=== PATIENT | female | born 1965 | race Caucasian/White ===

== ENCOUNTER → 2018-10-28 | Day surgery (SDC) | payer BC ==
[~2018-10-28] MED LIST: BUPROPION HCL75 MG PO; FENTANYL CITRATE/PF 100MCG/2 ML INJ ONE; HYOSCYAMINE 0.125 MG TAB ONE; MIDAZOLAM HCL 2 MG/2 ML VIAL ONE; PROPOFOL IV EMULSION 10 MG/ML 50 ML VIAL ONE
--- OUTSIDE RECORDS SUMMARY | 2018-10-28 05:59 | XMS REPORT | Clinical Summary ---
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 Max Daily Amount: 4 tablets 01/25/2018 promethazine (PHENERGAN) Take 1 tablet 20 tablet 0 25 MG tablet (25 mg total) 8 by mouth every 6 (six) hours as needed for nausea or vomiting for up to 7 days. Active Problems Problem Noted Date Mechanical complication of internal fixation device such as nail, plate or 01/04/2018 angella Overview: Added automatically from request for surgery [id number] Acute vaginitis 09/01/2017 Closed -punch intra-articular fracture of distal end of radius with 06/11/2017 routine healing Closed fracture of right distal radius 06/03/2017 Overview: Added automatically from request for surgery [id number] DVT (deep venous thrombosis) Smoker Encounters Care Team Description Date Type Specialty Cassidy Hughes MD Mechanical complication of internal fixation device such as nail, plate or angella, subsequent encounter (Primary Dx) 03/01/2018 Office Visit Orthopedic Surgery Cassidy Hughes MD Mechanical complication of internal fixation device such as nail, plate or angella, subsequent encounter (Primary Dx) 01/25/2018 Office Visit Orthopedic Surgery Cassidy Hughes MD 01/20/2018 Telephone Orthopedic Surgery Endy Dorantes Mechanical complication of graft of cartilage, initial encounter (HCC) (Primary Dx) 01/20/2018 Refill Orthopedic Surgery Marcelina Matos 01/20/2018 Telephone Anesthesiology Cassidy Hughes MD DEEP HARDWARE REMOVAL RIGHT DISTAL [facility] 01/19/2018 Surgery General Surgery Alia Zayas NP 01/19/2018 Anesthesia General Surgery Event Cassidy Hughes MD Mechanical complication of internal fixation device such as nail, plate or angella, initial encounter (HCC) 01/19/2018 Hospital General Surgery Encounter Endy Dorantes 01/18/2018 Refill Orthopedic Surgery Reese Arceo MD Painful respiration 12/27/2017 Hospital Radiology Encounter Reese Arceo MD Painful respiration (Primary Dx) 12/27/2017 Transcribe Access Orders Cassidy Hughes MD Mechanical complication of internal fixation device such as nail, plate or angella, initial encounter (Primary Dx); Closed intra-articular -punch fracture of right radius with routine healing, subsequent encounter 12/14/2017 Office Visit Orthopedic Surgery Reese Arceo MD Cough (Primary Dx); Chest pain on breathing 12/10/2017 Transcribe Access Orders after 10/27/2017 Family History Medical History Relation Name Comments Cirrhosis Father Diabetes Mother Hypertension Mother Relation Name Status Comments Father Mother Social History Date Tobacco Use Types Packs/Day Years Used Current Every Day Smoker Cigarettes 1 25 Smokeless Tobacco: Never Used Tobacco Cessation: Ready to Quit: Yes Alcohol Use Drinks/Week oz/Week Comments Yes 2 Cans of 1.2 beer Sex Assigned at Date Recorded Not on file Industry Job Start Date Occupation Not on file Not on file Not on file Travel End Travel History Travel Start No recent travel history available. Last Filed Vital Signs Time Taken Vital Sign Reading 01/25/2018 9:02 AM CDT Blood Pressure 131/76 01/25/2018 9:02 AM CDT Pulse 78 01/19/2018 12:00 PM CDT Temperature 36.2 C (97.1 F) 01/19/2018 12:00 PM CDT Respiratory Rate 20 01/19/2018 12:00 PM CDT Oxygen Saturation 93% - Inhaled Oxygen - Concentration 03/01/2018 8:41 AM [employer]OMER SERV[employer]ITY OFFICER Weight 61.2 kg (135 lb) 03/01/2018 8:41 AM CUSTOMER SERVICE SECURITY OFFICER Height 177.8 cm (5' 10") 03/01/2018 8:41 AM CUSTOMER SERVICE SECURITY OFFICER Body Mass Index 19.37 Plan of Treatment Health Maintenance Due Date Last Done Comments COLONOSCOPY SCREENING 2014 SHINGLES VACCINES (#1) 2014 INFLUENZA VACCINE 11/17/2018 BREAST CANCER SCREENING 10/01/2019 09/30/2017, 09/27/2017, 09/27/2017, Additional history exists Implants Device Identifier Shelf Expiration Date Model / Serial / Lot Implanted Type Area Manufactur er 02 111 630 / / VENDOR LOT NA Plate Vdr Rt Va-Lcp 2col 6x3h Ss Orthopedic Right: Wrist SYNTHES 2.4x54mm - [id number] Trauma TRAUMA AND Implanted: 06/07/2017 (Quantity not Implants RECON on file) 02 210 122 / / VENDOR LOT NA Screw Bone Lkng V-Ang W/ T8 Strdrv Orthopedic Right: Wrist SYNTHES Recs Ss 2.4x22mm - [id number] Trauma TRAUMA AND Implanted: 06/07/2017 (Quantity not Implants RECON on file) 02 210 120 / / VENDOR LOT NA Screw Bone Lkng V-Ang W/ T8 Strdrv Orthopedic Right: Wrist SYNTHES Recs Ss 2.4x20mm - [id number] Trauma TRAUMA AND Implanted: 06/07/2017 (Quantity not Implants RECON on file) 02 210 114 / / VENDOR LOT NA Screw Bone Lkng V-Ang W/ T8 Strdrv Orthopedic Right: Wrist SYNTHES Recs Ss 2.4x14mm - [id number] Trauma TRAUMA AND Implanted: 06/07/2017 (Quantity not Implants RECON on file) 02 210 112 / / VENDOR LOT NA Screw Bone Lkng V-Ang W/ T8 Strdrv Orthopedic Right: Wrist SYNTHES Recs Ss 2.4x12mm - [id number] Trauma TRAUMA AND Implanted: 06/07/2017 (Quantity not Implants RECON on file) 202 874 / / Screw Bone Raimundo Slf-Tap W/ T8 Orthopedic N/A: N/A SYNTHES Strdrv Recs Ss 2.7x14mm - Trauma TRAUMA AND [id number] Implants RECON Implanted: 06/07/2017 (Quantity not on file) Procedures Comments Procedure Name Priority Date/Time Associated Diagnosis T3 Routine 06/13/2018 Thyroid function test 10:56 AM CUSTOMER SERVICE SECURITY OFFICER abnormal T4, FREE Routine 06/13/2018 Thyroid function test 10:56 AM CUSTOMER SERVICE SECURITY OFFICER abnormal THYROID STIMULATING Routine 06/13/2018 Thyroid function test HORMONE 10:56 AM CUSTOMER SERVICE SECURITY OFFICER abnormal XR WRIST 3+ VW RIGHT Routine 03/01/2018 Mechanical complication 9:00 AM CUSTOMER SERVICE SECURITY OFFICER of internal fixation device such as nail, plate or angella, subsequent encounter XR WRIST 3+ VW RIGHT Routine 01/25/2018 Right wrist pain 9:54 AM CDT REMOVAL, HARDWARE, 01/19/2018 Mechanical complication RADIUS, HEAD 11:00 AM CDT of internal fixation device such as nail, plate or angella, initial encounter (HCC) Special Needs OP, SUPINE, AXILLARY, SYNTHES SCREWDRIVE R [place] AN PERIPHERAL BLOCK Routine 01/19/2018 PROCEDURE FOR PAIN 9:53 AM CDT Procedure Note - Maura Orta - 01/19/2018 9:53 AM CDT Peripheral Block Performed by: BERTHA MARTINEZ Authorized by: CASSIDY HUGHES Patient Location: PACU Start Time: 01/19/2018 9:53 AM End Time: 01/19/2018 10:02 AM Reason for Block: at surgeon's request, post-op pain management , procedure for pain Staff: Anesthesio logist: BERTHA MARTINEZ Performed by: Anesthesio logisedmund Preprocedu re: patient identified , IV checked, site and side verified, risks and benefits discussed, procedure verified, surgical consent complete, patient position confirmed, monitors and equipment checked, pre-op evaluation complete and site marked Time Out Performed: 01/19/2018 9:50 AM Peripheral Nerve Block: Patient Position: Supine Prep: ChloraPrep Monitoring : Blood pressure monitoring , continuous pulse oximetry, CO2 and heart rate Block Type: Supraclavi cular Laterality : Right Injection Technique: Single injection Procedures : ultrasound guided and nerve stimulator Ultrasound documentat ion: Printed/pl aced in chart and still images obtained Local Infiltrati on (See MAR for details): Lidocaine Loss of Twitch: 0.4 mA Needle: Needle type: [employer]. Needle Gauge: 21 G Needle length: 90mm. Assessment : Injection Assessment : Visualized needle/loc al anesthetic surroundin g nerve, visualized pertinent vascular structures and nerves, needle tip visualized at all times during injection of medication , intermitte nt aspiration during local anesthetic administra tion and no symptoms of intraneura l/intraven ous injection Paresthesi a Pain: Immediatel y resolved Heart Rate Change: No Slow Fractionat ed Injection: Yes Block outcome: No apparent complicati ons, patient comfortabl e and patient tolerated procedure well Notes: Note transcribe d for Dr. Gloria Martinez. [place] AN PERIPHERAL BLOCK Routine 01/19/2018 POST-OP PAIN 9:53 AM CDT Procedure Note - Maura Orta - 01/19/2018 9:53 AM CDT Peripheral Block Performed by: BERTHA MARTINEZ Authorized by: CASSIDY HUGHES Patient Location: PACU Start Time: 01/19/2018 9:53 AM End Time: 01/19/2018 10:02 AM Reason for Block: at surgeon's request, post-op pain management , procedure for pain Staff: Anesthesio logist: BERTHA MARTINEZ Performed by: Anesthesio logist Preprocedu re: patient identified , IV checked, site and side verified, risks and benefits discussed, procedure verified, surgical consent complete, patient position confirmed, monitors and equipment checked, pre-op evaluation complete and site marked Time Out Performed: 01/19/2018 9:50 AM Peripheral Nerve Block: Patient Position: Supine Prep: ChloraPrep Monitoring : Blood pressure monitoring , continuous pulse oximetry, CO2 and heart rate Block Type: Supraclavi cular Laterality : Right Injection Technique: Single injection Procedures : ultrasound guided and nerve stimulator Ultrasound documentat ion: Printed/pl aced in chart and still images obtained Local Infiltrati on (See MAR for details): Lidocaine Loss of Twitch: 0.4 mA Needle: Needle type: Stimuquik. Needle Gauge: 21 G Needle length: 90mm. Assessment : Injection Assessment : Visualized needle/loc al anesthetic surroundin g nerve, visualized pertinent vascular structures and nerves, needle tip visualized at all times during injection of medication , intermitte nt aspiration during local anesthetic administra tion and no symptoms of intraneura l/intraven ous injection Paresthesi a Pain: Immediatel y resolved Heart Rate Change: No Slow Fractionat ed Injection: Yes Block outcome: No apparent complicati ons, patient comfortabl e and patient tolerated procedure well Notes: Note transcribe d for Dr. K. Shailesh. XR CHEST 2 VW Routine 12/27/2017 Painful respiration 9:50 AM CDT ZZESTIMATED GFR Routine 12/27/2017 9:30 AM CDT LIPID PANEL Routine 12/27/2017 Fatigue, unspecified type 9:30 AM CDT Cough Chest pain on breathing Screening for hyperlipidemia T4, FREE Routine 12/27/2017 Fatigue, unspecified type 9:30 AM CDT Cough Chest pain on breathing Screening for hyperlipidemia THYROID STIMULATING Routine 12/27/2017 Fatigue, unspecified type HORMONE 9:30 AM CDT Cough Chest pain on breathing Screening for hyperlipidemia SEDIMENTATION RATE Routine 12/27/2017 Fatigue, unspecified type 9:30 AM CDT Cough Chest pain on breathing Screening for hyperlipidemia HC COMPLETE BLD COUNT Routine 12/27/2017 Fatigue, unspecified type W/AUTO DIFF 9:30 AM CDT Cough Chest pain on breathing Screening for hyperlipidemia COMPREHENSIVE METABOLIC Routine 12/27/2017 Fatigue, unspecified type PANEL 9:30 AM CDT Cough Chest pain on breathing Screening for hyperlipidemia XR WRIST 3+ VW RIGHT Routine 12/14/2017 Closed intra-articular 8:35 AM CDT -punch fracture of right radius with routine healing, subsequent encounter after 10/27/2017 Results * T3 (06/13/2018 10:56 AM CUSTOMER SERVICE SECURITY OFFICER) T3 60 (L) 80 - 200 ng/dL [facility] Specimen Serum Performing Organization Address City/State/Zipcode Phone Number [facility] DEPARTMENT OF [address] [place] [address] PATHOLOGY AND GENOMIC MEDICINE [address] * Thyroid stimulating hormone (06/13/2018 10:56 AM CUSTOMER SERVICE SECURITY OFFICER) Only the most recent of 2 results within the time period is included. TSH 0.59 0.55 - 4.78 uIU/mL [facility] Specimen Serum Performing Organization Address City/State/Zipcode Phone Number [facility] DEPARTMENT OF [address] [place] [address]. [address] [place] [address] PATHOLOGY AND GENOMIC MEDICINE [address] * T4, free (06/13/2018 10:56 AM CUSTOMER SERVICE SECURITY OFFICER) Only the most recent of 2 results within the time period is included. T4, free 1.0 0.8 - 1.8 ng/dL [facility] Specimen Serum Performing Organization Address City/[facility] Phone Number [facility] DEPARTMENT OF [address] [place] [address]. [address] [place] [address] PATHOLOGY AND GENOMIC MEDICINE [address] * XR Wrist 3+ Vw Right (03/01/2018 9:00 AM CUSTOMER SERVICE SECURITY OFFICER) Only the most recent of 3 results within the time period is included. Specimen Narrative Performed At [facility] X-rays ordered, performed and interpreted by me today reveal:Right wrist 3 views show no evidence of distal radius re-fracture. Screw holes still visible, increased callus. Performing Organization Address [facility] Phone Number [employer] [address] [place] [address] * XR Chest 2 Vw (12/27/2017 9:50 AM CDT) Specimen Narrative Performed At Examination:XR CHEST 2 VW [facility] Clinical History: R07.1 Chest pain on breathing, chest pain on breathing Comparison: None. Technique: Frontal and lateral views of the chest were obtained. Findings: Lungs and pleural surfaces are clear. Cardiomediastinal silhouette and pulmonary vascularity are within normal limits. Bones are intact. Impression: No active cardiopulmonary disease identified. [facility]-[id number] Procedure Note Interface, Radiology Results Incoming - 12/27/2017 9:55 AM CDT Examination: XR CHEST 2 VW Clinical History: R07.1 Chest pain on breathing, chest pain on breathing Comparison: None. Technique: Frontal and lateral views of the chest were obtained. Findings: Lungs and pleural surfaces are clear. Cardiomediastinal silhouette and pulmonary vascularity are within normal limits. Bones are intact. Impression: No active cardiopulmonary disease identified. [facility]-[id number] Performing Organization Address City/[facility] Phone Number [employer] [address] [place] [address] * Estimated GFR (12/27/2017 9:30 AM CDT) Pathologist [facility] GFR Non Af Amer 87 mL/min/1.73 m2 [facility] DEPARTMENT OF PATHOLOGY AND GENOMIC MEDICINE GFR Af Amer >90 mL/min/1.73 m2 [facility] DEPARTMENT Comment: OF PATHOLOGY Chronic kidney disease: <60 AND GENOMIC mL/min/1.73m2 MEDICINE Kidney failure: <15 mL/min/1.73m2 The estimated GFR is calculated from the IDMS-traceable Modification of Diet in Renal Disease Equation. The accuracy of the calculation is poor when the creatinine is normal. Calculated values >90 mL/min/1.73m2 are not reported. This equation has not been validated in children (<18 years), women, the elderly (>70 years), or ethnic groups other than Caucasians and Americans. Specimen Plasma specimen Performing Organization Address City/State/[place] [address] PATHOLOGY AND GENOMIC [facility] * Sedimentation rate (12/27/2017 9:30 AM CDT) [facility] Sedimentation 6 1 - 20 mm/hr [facility] DEPARTMENT rate OF PATHOLOGY AND [employer] MEDICINE Specimen Blood Performing Organization Address City/[facility]/[place] [address] PATHOLOGY AND [employer] [facility] * CBC with platelet and differential (12/27/2017 9:30 AM CDT) [facility] WBC 7.2 4.5 - 11.0 k/uL [facility] DEPARTMENT OF PATHOLOGY AND GENOMIC MEDICINE RBC 4.29 4.20 - 5.50 M/uL [facility] DEPARTMENT OF PATHOLOGY AND GENOMIC MEDICINE HGB 14.2 14.0 - 18.0 g/dL [facility] DEPARTMENT OF PATHOLOGY AND GENOMIC MEDICINE HCT 43.0 37.0 - 47.0 % [facility] DEPARTMENT OF PATHOLOGY AND GENOMIC MEDICINE MCV 100.2 (H) 82.0 - 100.0 fL [facility] DEPARTMENT OF PATHOLOGY AND GENOMIC MEDICINE MCH 33.1 27.0 - 34.0 pg [facility] DEPARTMENT OF PATHOLOGY AND GENOMIC MEDICINE MCHC 33.0 31.0 - 37.0 g/dL [facility] DEPARTMENT OF PATHOLOGY AND GENOMIC MEDICINE RDW - SD 45.6 37.0 - 55.0 fL [facility] DEPARTMENT OF PATHOLOGY AND GENOMIC MEDICINE MPV 10.0 8.8 - 13.2 fL [facility] DEPARTMENT OF PATHOLOGY AND GENOMIC MEDICINE Platelet count 188 150 - 400 K/uL [facility] DEPARTMENT OF PATHOLOGY AND GENOMIC MEDICINE Nucleated RBC 0.00 /100 WBC [facility] DEPARTMENT OF PATHOLOGY AND GENOMIC MEDICINE Neutrophils 68.6 39.0 - 69.0 % [facility] DEPARTMENT OF PATHOLOGY AND GENOMIC MEDICINE Lymphocytes 23.6 (L) 25.0 - 45.0 % [facility] DEPARTMENT OF PATHOLOGY AND GENOMIC MEDICINE Monocytes 6.2 0.0 - 10.0 % [facility] DEPARTMENT OF PATHOLOGY AND GENOMIC MEDICINE Eosinophils 0.6 0.0 - 5.0 % [facility] DEPARTMENT OF PATHOLOGY AND GENOMIC MEDICINE Basophils 0.6 0.0 - 1.0 % [facility] DEPARTMENT OF PATHOLOGY AND GENOMIC MEDICINE Immature 0.4Comment: "Immature 0.0 - 1.0 % [facility] DEPARTMENT granulocytes granulocytes" (promyelocytes, OF PATHOLOGY myelocytes, metamyelocytes) AND GENOMIC MEDICINE Specimen Blood Performing Organization Address City/State/Zipcode Phone Number [place] [phone] [facility] [address] [place] [address] PATHOLOGY AND GENOMIC MEDICINE * Lipid panel (12/27/2017 9:30 AM CDT) Cholesterol 200 (H) 0 - 199 mg/dL [facility] DEPARTMENT OF PATHOLOGY AND GENOMIC MEDICINE Triglycerides 103 0 - 149 mg/dL [facility] DEPARTMENT OF PATHOLOGY AND GENOMIC MEDICINE HDL cholesterol 74 50 - 9,999 mg/dL [facility] DEPARTMENT OF PATHOLOGY AND GENOMIC MEDICINE LDL cholesterol 125 (H) 0 - 99 mg/dL [facility] DEPARTMENT OF PATHOLOGY AND GENOMIC MEDICINE Lipid panel See below [facility] DEPARTMENT interpretation Comment: OF PATHOLOGY Total Cholesterol AND GENOMIC (mg/dL) MEDICINE <200 Desirable 200-239Borderline -high >=240High Triglycerides (mg/dL) <150 Normal 150-199Borderline -high 200-499High >=500Very high HDL Cholesterol (mg/dL) <40Low (male) <50Low (female) LDL Cholesterol (mg/dL) <100 Optimal 100-129Near or above optimal 130-159Borderline -high 160-189High >=190Very high Risk Catergories that modify LDL goals. Risk Catergories LDL goal (mg/dL) CHD and CHD risk equivalent<100 (10-year risk >20%) Multiple (2+) risk factors <130 (10-year risk=<20%) 0-1 risk factors <160 (<10-year risk) Defining levels of lipids in metabolic syndrome Triglycerides >=150 mg/dL HDL Cholesterol Men <40 mg/dL Women <50 mg/dL Non-HDL cholesterol is a second target for therapy in persons with high triglycerides (>=200 mg/dL) Specimen Plasma specimen Performing Organization Address City/State/Zipcode Phone Number [address] [place] [phone] PATHOLOGY AND GENOMIC MEDICINE * Comprehensive metabolic panel (12/27/2017 9:30 AM CDT) Sodium 144 135 - 148 mEq/L [facility] DEPARTMENT OF PATHOLOGY AND GENOMIC MEDICINE Potassium 4.7 3.5 - 5.0 mEq/L [facility] DEPARTMENT OF PATHOLOGY AND GENOMIC MEDICINE Chloride 106 99 - 109 mEq/L [facility] DEPARTMENT OF PATHOLOGY AND GENOMIC MEDICINE CO2 28 24 - 31 mEq/L [facility] DEPARTMENT OF PATHOLOGY AND GENOMIC MEDICINE Anion gap 10@ANIO 7 - 15 mEq/L [facility] DEPARTMENT OF PATHOLOGY AND GENOMIC MEDICINE BUN 12 8 - 24 mg/dL [facility] DEPARTMENT OF PATHOLOGY AND GENOMIC MEDICINE Creatinine 0.7 0.5 - 1.5 mg/dL [facility] DEPARTMENT OF PATHOLOGY AND GENOMIC MEDICINE Glucose 98 65 - 99 mg/dL [facility] DEPARTMENT OF PATHOLOGY AND GENOMIC MEDICINE Calcium 9.5 8.6 - 10.6 mg/dL [facility] DEPARTMENT OF PATHOLOGY AND GENOMIC MEDICINE Protein 7.0 6.3 - 8.2 g/dL [facility] DEPARTMENT OF PATHOLOGY AND GENOMIC MEDICINE Albumin 4.8 3.5 - 5.0 g/dL [facility] DEPARTMENT OF PATHOLOGY AND GENOMIC MEDICINE A/G ratio 2.18 0.70 - 3.80 [facility] DEPARTMENT OF PATHOLOGY AND GENOMIC MEDICINE Alkaline 62 30 - 115 U/L [facility] DEPARTMENT phosphatase OF PATHOLOGY AND GENOMIC MEDICINE AST 17 15 - 46 U/L [facility] DEPARTMENT OF PATHOLOGY AND GENOMIC MEDICINE ALT 15 10 - 55 U/L [facility] DEPARTMENT OF PATHOLOGY AND GENOMIC MEDICINE Total bilirubin 1.1 0.2 - 1.2 mg/dL [facility] DEPARTMENT OF PATHOLOGY AND GENOMIC MEDICINE Specimen Plasma specimen Performing Organization Address City/State/Zipcode Phone Number [address] [place] [address] PATHOLOGY AND GENOMIC MEDICINE after 10/27/2017 Insurance Type Payer Benefit Subscriber ID Effective Phone Address Plan / Dates Group PPO BCBS BCBS xxxxxxxxxxxx [id number] CHOICE resent PPO/OLIVA NINO PPO Advance Directives Patient has advance care planning documents on file. For more information, plejacki e contact: Ventura Rajan [address] [place] [address]
[2018-10-28 09:30] VITALS: BP 125/86
--- NOTE | 2018-10-28 12:22 | Operative Report ---
DATE OF PROCEDURE: 10/28/2018 SURGEON: Juvenal Garcia MD PROCEDURE: Colonoscopy with polypectomy. REFERRING PHYSICIAN: Dr. Arceo. INDICATIONS FOR COLONOSCOPY: Colorectal cancer screening. MEDICATIONS: The patient was done under MAC, please see anesthesiologist's note. PROCEDURE IN DETAIL: With the patient in left lateral decubitus position, flexible fiberoptic Olympus colonoscope was inserted into the rectum with ease and advanced all the way to the cecum. The scope was then withdrawn slowly and mucosa overlying the cecum appeared to be within normal limits. Two polyps were snared, one polypectomy site was hemoclipped from the ascending colon. One polyp approximately 1 cm in size sessile was snared from the transverse colon and site was hemoclipped. An additional polyp was snared from the descending colon. Diverticular disease was noted to involve the distal descending and the sigmoid colon. Two polyps were snared and one polyp was hot biopsied from the sigmoid colon. One polyp was snared and one polyp was hot biopsied from the rectum. The scope was then retroflexed into the distal rectum and small internal hemorrhoids were noted, none of which was actively bleeding. The scope was then straightened out, it was subsequently withdrawn. The patient tolerated procedure well. IMPRESSION: 1. Ascending colon polyp x2, snared and one polypectomy site hemoclipped. 2. Transverse colon polyp x1, snared and polypectomy site hemoclipped. 3. Descending colon polyp x1, snared. 4. Diverticulosis. 5. Sigmoid colon polyps x3, two snared and one hot biopsied. 6. Rectal polyps x2, one snared and one hot biopsied. 7. Internal hemorrhoids, none actively bleeding. PLAN: Follow up histology. Initiate high-fiber, low-fat diet. Initiate high-fiber supplement. A total of 9 polyps were removed. The patient might benefit from a followup colonoscopy in 2 to 3 years. Juvenal Garcia MD [facility] /[id number] cc: Dr. Arceo
== END | disposition home or self-care (01) ==
LOC: OR 05:52
PROVIDERS: ATTEND Internal Medicine Gastroenterology
DX: Z12.11 Encounter for screening for malignant neoplasm of colon (principal); D12.2 Benign neoplasm of ascending colon; D12.4 Benign neoplasm of descending colon; D12.8 Benign neoplasm of rectum; K57.30 Diverticulosis of large intestine without perforation or abscess without bleeding; R14.0 Abdominal distension (gaseous); K64.8 Other hemorrhoids; Z72.0 Tobacco use; Z88.0 Allergy status to penicillin; Z01.810 Encounter for preprocedural cardiovascular examination
CPT/HCPCS: 45384; 45385; 93005; J2250; J2704; 45378; J3010

== ENCOUNTER → 2025-02-10 | Day surgery (SDC) | payer BC ==
[~2025-02-10] MED LIST changes: +DICYCLOMINE HCL20 MG PO; +GLUCAGON FOR INJ 1 MG VIAL ONE; -HYOSCYAMINE 0.125 MG TAB ONE; +HYOSCYAMINE SULFATE 0.5 MG/ML INJ ONE; +LIDOCAINE HCL 2% LOCAL INJ 5 ML SDV VIAL INJ ONE; -MIDAZOLAM HCL 2 MG/2 ML VIAL ONE; +ONDANSETRON HCL INJ 2MG/ML 2ML 2 MG/ML VIAL ONE; -PROPOFOL IV EMULSION 10 MG/ML 50 ML VIAL ONE; +PROPOFOL IV EMULSION 50 ML IV ONE
[2025-02-10 08:32] VITALS: TEMP 98.8
[2025-02-10 08:50] VITALS: BP 121/92; PULSE 73; RESP 18; O2SAT 99
[2025-02-10] MEDS: LACTATED RINGER'S 1,000 ML ONE (08:57)
== END | disposition home or self-care (01) ==
LOC: OR 06:51
PROVIDERS: ATTEND Internal Medicine Gastroenterology
DX: Z12.11 Encounter for screening for malignant neoplasm of colon (principal); Z86.0100 Personal history of colon polyps, unspecified; K59.04 Chronic idiopathic constipation; K58.1 Irritable bowel syndrome with constipation; K57.30 Diverticulosis of large intestine without perforation or abscess without bleeding; K64.8 Other hemorrhoids; Z88.0 Allergy status to penicillin; Z01.810 Encounter for preprocedural cardiovascular examination
CPT/HCPCS: 45378; 93005; J1610; J1980; J2003; J2405